=== PATIENT | female | born 1970 | race Caucasian/White ===

== ENCOUNTER 2016-06-18 13:06 | Emergency (ER) | payer MEDICAID ==
[~2016-06-18] VITALS: Ht 154.9 cm; Wt 86.4 kg
[~2016-06-18 13:06] MED LIST: ALBU0.08 NEB; ALBUAER3 INH; PRED50 PO; VENTAER INH
[2016-06-18 13:18] VITALS: BP 122/53; PULSE 75; RESP 16; TEMP 98.1; O2SAT 98
--- NOTE | 2016-06-18 14:12 | PD ---
HPI Chief Complaint: Cold / Flu Symptoms Time Seen by Provider: 14:07 Travel History International Travel<30 days: No Contact w/Intl Traveler<30days: No Traveled to known affect area: No History of Present Illness HPI Patient is a 46-year-old female presenting to our for evaluation of shortness of breath, chest congestion, cough. Patient states her symptoms started approximately one week ago with upper respiratory infection however the shortness of breath and wheezing has gotten worse over the last few days. Patient reports a history of asthma and has been using her albuterol inhaler as well as nebulizer treatments. Her last nebulizer treatment was last night, she has since run out of her medications. She denies any fever, chills, nausea, vomiting, chest pain, abdominal pain. PFSH Past Medical History Hx Anticoagulant Therapy: No Anemia: Yes Asthma: Yes Cardiovascular Problems: No Chemotherapy: No Cerebrovascular Accident: No Diabetes: No Diminished Hearing: No Respiratory: Yes (asthma) Immunizations Current: No ?: Not : 5 Para: 4 : 1 Tubal Ligation: Yes Past Surgical History Cholecystectomy: Yes Hysterectomy: Yes Social History Alcohol Use: Yes (SOCIALLY) Tobacco Use: Yes (former) Substance Use: No Allergies-Medications (Allergen,Severity, Reaction): Coded Allergies: No Known Allergies (Unverified , 06/18/16) Reported Meds & Prescriptions Reported Meds & Active Scripts Active Prednisone 50 Mg Tab 50 Mg PO DAILY 5 Days Budesonide Neb 0.5 Mg/2 Ml Neb 0.5 Mg NEB Q12HR NEB 10 Days Albuterol Neb (Albuterol Sulfate) 2.5 Mg/3 Ml Neb 2.5 Mg NEB Q4HR NEB PRN 30 Days Ventolin Hfa 18 GM Inh (Albuterol Sulfate) 90 Mcg/Act Aer 2 Puff INH Q4-6H PRN Review of Systems Except as stated in HPI: all other systems reviewed are Neg General / Constitutional: No: Fever, Chills HENT: No: Headaches Respiratory: Positive: Cough, Shortness of Breath, Wheezing, Pleuritic Pain Gastrointestinal: No: Nausea, Vomiting, Abdominal Pain Musculoskeletal: No: Myalgias Physical Exam Narrative GENERAL: Obese, well developed, female. Resting comfortably in no acute distress. SKIN: Warm and dry. HEAD: Normocephalic. EYES: No scleral icterus. No injection or drainage. NECK: Supple, trachea midline. No JVD or lymphadenopathy. CARDIOVASCULAR: Regular rate and rhythm without murmurs, gallops, or rubs. RESPIRATORY: Breath sounds equal bilaterally, diminished in bases, expiratory wheezing noted throughout. No increased work of breathing. GASTROINTESTINAL: Abdomen soft, non-tender, nondistended. Positive bowel sounds. No hepato-splenomegaly, or palpable masses. No guarding. MUSCULOSKELETAL: No cyanosis, or edema. BACK: Nontender without obvious deformity. No CVA tenderness. Data Data Last Documented VS Vital Signs Date Time Temp Pulse Resp B/P Pulse Ox O2 Delivery O2 Flow Rate FiO2 06/18/16 14:39 54 20 154/62 99 06/18/16 13:18 98.1 Orders Chest, Pa & Lat (06/18/16 14:05) Methylprednisolone So Succ Inj (Solumedr (06/18/16 14:15) Albuterol-Ipratropium Neb (Duoneb Neb) (06/18/16 14:15) MDM Medical Decision Making Medical Screen Exam Complete: Yes Emergency Medical Condition: Yes Interpretation(s) Vital Signs Date Time Temp Pulse Resp B/P Pulse Ox O2 Delivery O2 Flow Rate FiO2 06/18/16 13:18 98.1 75 16 122/53 98 Differential Diagnosis Asthma exacerbation versus bronchitis versus pneumonia versus other Narrative Course Patient's a 46-year-old female percent emergency for evaluation of shortness of breath, chest congestion, wheezing. Patient is a history of asthma and has been using her inhaler or nebulizer treatments. She ran out of her nebulizers last night. Patient is afebrile, she is well oxygenated on room air. She does have expiratory wheezing noted throughout. DuoNeb, Solu-Medrol, chest x-ray ordered and pending. Chest x-ray shows no acute disease. She reports improvement in her symptoms after nebulizers and Solu-Medrol. Patient will be provided with prescription refills for her albuterol inhaler as well as nebulizer treatments. Discussed prescriptions patient. She is encouraged to follow-up with her primary care next week as scheduled. She is encouraged to return to emergency department for any new or worsening symptoms. She verbalized understanding of these instructions. Diagnosis Primary Impression: Asthma exacerbation Additional Impression: Bronchitis Referrals: Primary Care Physician 1 week Patient Instructions: Asthma (ED), General Instructions Additional Instructions: Follow-up with your primary doctor Use medications as directed Return to emergency department for any new or worsening symptoms Med/Other Pt SpecificInfo: Prescription(s) given Scripts Azithromycin 250 Mg [id number] Mg PO DIRECTED #6 TAB Ref 0 Take 2 tabs (500 mg) on day 1 then 1 tab daily x 4 days. Prov:Tonia Feliz 06/18/16 Prednisone 50 Mg Tab50 Mg PO DAILY 5 Days Ref 0 Prov:Tonia Feliz 06/18/16 Budesonide Neb 0.5 Mg/2 Ml Neb0.5 Mg NEB Q12HR NEB 10 Days Ref 0 Prov:Tonia Feliz 06/18/16 Albuterol Neb 2.5 Mg/3 Ml Neb2.5 Mg NEB Q4HR NEB PRN (SHORTNESS OF BREATH) 30 Days Ref 0 Prov:Tonia Feliz 06/18/16 Albuterol 18 GM Inh (Ventolin Hfa 18 GM Inh)90 Mcg/Act Aer2 Puff INH Q4-6H PRN ( SHORTNESS OF BREATH) #1 INHALER Ref 0 Prov:Tonia Feliz 06/18/16 Disposition: 01 DISCHARGE HOME Condition: Stable Tonia Feliz Jun 18, 2016 14:11
[2016-06-18] MEDS ORDERED: methylPREDNISolone SOD SUCC 125 MG/2 ML VIAL IM ONE (14:15)
[2016-06-18] MEDS: RESP: ALBUTEROL 2.5 MG/IPRATROPIUM 0.5 MG NEB (SCH) INH ×2 (14:29→14:30)
--- NOTE | 2016-06-18 14:31 | RADHPO ---
EXAM DATE/TIME: 06/18/2016 14:15 [facility] COMPARISON: No previous studies available for comparison. INDICATIONS : Cough/short of breath/asthma/cold. MEDICAL HISTORY : Asthma. SURGICAL HISTORY : Hysterectomy. Cholecystectomy. ENCOUNTER: Initial ACUITY: 1 week PAIN SCORE: 0/10 LOCATION: chest FINDINGS: PA and lateral views of the chest demonstrate the lungs to be symmetrically aerated without evidence of mass, infiltrate or effusion. The cardiomediastinal contours are unremarkable. Osseous structure s are intact. CONCLUSION: No acute disease. There is no evidence of pneumonia. Romain Jaime MD on June 18, 2016 at 14:29 Board Certified Radiologist. This report was verified electronically.
[2016-06-18 14:39] VITALS: BP 154/62; PULSE 54; RESP 20; O2SAT 99
[2016-06-18] MEDS ORDERED: BUDE0.5S NEB (14:42)
[2016-06-18] MEDS ORDERED: PRED50 PO (14:42)
[2016-06-18] MEDS ORDERED: ALBU0.08 NEB (14:42)
[2016-06-18] MEDS ORDERED: VENTAER INH (14:42)
[2016-06-18] MEDS ORDERED: AZIT250T3 PO (15:13)
== END 2016-06-18 15:21 | disposition home or self-care (01) ==
LOC: PHEFT 13:06
DX: J45.901 Unspecified asthma with (acute) exacerbation (principal); Z87.891 Personal history of nicotine dependence
CPT/HCPCS: 71020; 94640; 94664; 96372; 99283; J2930

== ENCOUNTER 2016-10-10 21:50 | Emergency (ER) | payer MEDICAID ==
[~2016-10-10] VITALS: Ht 154.9 cm; Wt 81.2 kg
[~2016-10-10 21:50] MED LIST changes: -ALBUAER3 INH; +AZIT250T3 PO; +BUDE0.5S NEB
[2016-10-10 22:00] VITALS: BP 147/80; PULSE 71; RESP 18; TEMP 98.2; O2SAT 97
[2016-10-10] MEDS ORDERED: ARTIDRO RIGHT EYE (22:20)
--- NOTE | 2016-10-10 22:21 | PD ---
HPI Chief Complaint: Eye Problems/Injury Time Seen by Provider: 22:11 Travel History International Travel<30 days: No Contact w/Intl Traveler<30days: No Traveled to known affect area: No History of Present Illness HPI 46yo F with PMH of asthma presents to the ED with c/o right eye itching, redness today. When she woke up this morning, she noted crusting of her eyelashes and now has clear discharge in right eye. +Foreign body sensation in right eye. Denies any fever, visual changes, chest pain, sob, n/v, abdominal pain, focal weakness or numbness. PFSH Past Medical History Hx Anticoagulant Therapy: No Anemia: Yes Asthma: Yes Cardiovascular Problems: No Chemotherapy: No Cerebrovascular Accident: No Diabetes: No Diminished Hearing: No Respiratory: Yes Immunizations Current: No Tetanus Vaccination: < 5 Years Influenza Vaccination: No ?: Not Menopausal: Yes : 5 Para: 4 : 1 Tubal Ligation: Yes Past Surgical History Cholecystectomy: Yes Hysterectomy: Yes Social History Alcohol Use: Yes ("Maybe twice a year" ) Tobacco Use: Yes (/2 PPD) Substance Use: No Allergies-Medications (Allergen,Severity, Reaction): Coded Allergies: No Known Allergies (Unverified , 10/10/16) Reported Meds & Prescriptions Reported Meds & Active Scripts Active Artificial Tears Opth Drops (Propylene Glycol-Glycerin Opth Drops) 1-0.3% Drops 1-2 Drop RIGHT EYE BID PRN 5 Days Albuterol Neb (Albuterol Sulfate) 2.5 Mg/3 Ml Neb 2.5 Mg NEB Q4HR NEB PRN 30 Days Ventolin Hfa 18 GM Inh (Albuterol Sulfate) 90 Mcg/Act Aer 2 Puff INH Q4-6H PRN Review of Systems Except as stated in HPI: all other systems reviewed are Neg Physical Exam Narrative GENERAL: 46yo F not in distress. SKIN: Focused skin assessment warm/dry. HEAD: Atraumatic. Normocephalic. EYES: Right eye: Injected conjunctiva with clear eye discharge. Pupils reactive and equal to light. EOMI. No pain with eye movement. No foreign body seen on upper or lower eyelids. No fluorescein uptake on Wood's lamp exam. CARDIOVASCULAR: Regular rate and rhythm. No murmur appreciated. RESPIRATORY: No accessory muscle use. Clear to auscultation. Breath sounds equal bilaterally. GASTROINTESTINAL: Abdomen soft, non-tender, nondistended. Hepatic and splenic margins not palpable. MUSCULOSKELETAL: No obvious deformities. No clubbing. No cyanosis. No edema. NEUROLOGICAL: Awake and alert. No obvious cranial nerve deficits. Motor grossly within normal limits. Normal speech. PSYCHIATRIC: Appropriate mood and affect; insight and judgment normal. Data Data Last Documented VS Vital Signs Date Time Temp Pulse Resp B/P Pulse Ox O2 Delivery O2 Flow Rate FiO2 10/10/16 22:00 98.2 71 18 147/80 97 MDM Medical Decision Making Medical Screen Exam Complete: Yes Emergency Medical Condition: Yes Differential Diagnosis Viral conjunctivitis vs. corneal abrasion vs. foreign body in eye Narrative Course 46yo F with right eye conjunctivitis. Pt is well appearing and it just started today. Pt given acetaminophen for pain. No visual changes. Advised to use warm compresses and artificial tears as needed. Instructed to follow up with ophthalmology as outpatient. Diagnosis Primary Impression: Viral conjunctivitis of right eye Departure Forms: Tests/Procedures Additional Instructions: Please apply warm compresses to right eye. Please wash hands after touching your eye and avoid touching your left eye. Please follow up with cloth measurer in 1 week. Return to the ED if symptoms worsen. Med/Other Pt SpecificInfo: Prescription(s) given Scripts Propylene Glycol-Glycerin Opth Drops (Artificial Tears Opth Drops)1-0.3% Drops1- 2 Drop RIGHT EYE BID PRN (DRY EYE) 5 Days Ref 0 Prov:Nasreen Keenan DO 10/10/16 Disposition: 01 DISCHARGE HOME Condition: Stable Nasreen Keenan DO Oct 10, 2016 22:21
[2016-10-10] MEDS ORDERED: ACETAMINOPHEN 500 MG CPLT PO ONE (22:30)
== END 2016-10-10 22:35 | disposition home or self-care (01) ==
LOC: PHEFT 21:50
DX: B30.9 Viral conjunctivitis, unspecified (principal)
CPT/HCPCS: 99283

== ENCOUNTER 2016-11-06 06:39 | Emergency (ER) | payer MEDICAID ==
[~2016-11-06] VITALS: Ht 154.9 cm; Wt 81.7 kg
[~2016-11-06 06:39] MED LIST changes: +ARTIDRO RIGHT EYE; -AZIT250T3 PO; -BUDE0.5S NEB; -PRED50 PO
[2016-11-06 06:44] VITALS: BP 134/69; PULSE 52; RESP 16; TEMP 97.9; O2SAT 98
--- NOTE | 2016-11-06 07:22 | PD ---
HPI . Chief complaint shortness of breath T Chief Complaint: Respiratory Symptoms Time Seen by Provider: 06:59 Travel History International Travel<30 days: No Contact w/Intl Traveler<30days: No Traveled to known affect area: No History of Present Illness HPI This is a 47-year-old female patient with a past medical history of asthma was a long-time smoker that has been prescribed an albuterol nebulizer unit at home as well as an albuterol inhaler who presents with a complaint of shortness of breath for 2-3 days. Patient denies fever chills chest pain or productive cough. Patient states she ran out of her home nebulizer solution as well as albuterol inhaler medication. PFSH Past Medical History Hx Anticoagulant Therapy: No Anemia: Yes Asthma: Yes Cardiovascular Problems: No Chemotherapy: No Cerebrovascular Accident: No Diabetes: No Diminished Hearing: No Respiratory: Yes (ASTHMA) Immunizations Current: No ?: Not Menopausal: Yes : 5 Para: 4 : 1 Tubal Ligation: Yes Past Surgical History Cholecystectomy: Yes Hysterectomy: Yes Social History Alcohol Use: Yes ("Maybe twice a year" ) Tobacco Use: Yes (1/2 PPD) Substance Use: No Allergies-Medications (Allergen,Severity, Reaction): Coded Allergies: No Known Allergies (Unverified , 11/06/16) Reported Meds & Prescriptions Reported Meds & Active Scripts Active Prednisone 20 Mg Tab 20 Mg PO BID 5 Days Albuterol Neb (Albuterol Sulfate) 2.5 Mg/3 Ml Neb 2.5 Mg NEB QID NEB Ventolin Hfa 18 GM Inh (Albuterol Sulfate) 90 Mcg/Act Aer 2 Puff INH Q6H PRN Albuterol Neb (Albuterol Sulfate) 2.5 Mg/3 Ml Neb 2.5 Mg NEB Q4HR NEB PRN 30 Days Ventolin Hfa 18 GM Inh (Albuterol Sulfate) 90 Mcg/Act Aer 2 Puff INH Q4-6H PRN Review of Systems ROS Limitations: Other: (none) General / Constitutional: Positive: Chills Eyes: No: Diploplia, Blurred Vision, Photophobia, Drainage, Redness, Foreign Body Sensation, Pain, Tearing, Blind Spots, Visual changes, Blindness, Other HENT: No: Headaches, Vertigo, Lightheadedness, Sore Throat, Rhinitis, Rhinorrhea, Congestion, Nosebleed, Neck Stiffness, Neck Pain, Masses, Gingival Bleeding, Dental Difficulties, Ear Discharge, Earache, Other Cardiovascular: No: Chest Pain or Discomfort, Palpitations, Irregular Rhythm, Tachycardia, Diaphoresis, Syncope, Dyspnea on exertion, Varicosities, Edema, Cyanosis, Varicosities, Phlebitis, Claudication, Other Respiratory: Positive: Shortness of Breath, Wheezing, No: Cough, Sneezing, Orthopnea, Hemoptysis, Stridor, Night Sweats, Pleuritic Pain, Other Gastrointestinal: No: Nausea, Vomiting, Diarrhea, Abdominal Pain, Hematemesis, Hematochezia, Constipation, Changes in Bowel Habits, Indigestion, Dysphagia, Loss of Appetite, Other Genitourinary: No: Urgency, Frequency, Dysuria, Nocturia, Hematuria, Decreased Urinary Output, Oliguria, Hesitancy, Dribbling, Incontinence, Pelvic Pain, Flank Pain, Dyspareunia, Discharge, Dysmenorrhea, Menorrhagia, Metorrhagia, Vaginal Bleeding, Other Musculoskeletal: No: Myalgias, Arthralgias, Limited ROM, Weakness, Cramping, Edema, Pain, Atrophy, Other Skin: No Rash, No Itching, No Dryness, No Lumps, No Hives, No Change in Pigmentation, No Change in nails, No Alopecia, No Lesions, No Breast Lumps, No Breast Tenderness, No Breast Swelling, No Other Neurologic: No: Weakness, Dizziness, Syncope, Focal Abnormalities, Coordination Problem, Tremor, Ataxia, Headache, Change in Mentation, Slurred Speech, Paresthesia, Incontinence, Seizures, Sensory Disturbance, Other Psychiatric: No: Anxiety, Depression, Suicidal Ideations, Disorder of Thought, Mood Disorder, Substance Abuse, Homicidal Ideation, Other Endocrine: No: Heat Intolerance, Cold Intolerance, Polyuria, Polydipsia, Other Hematologic/Lymphatic: No: Easy Bruising, Lymph Node Enlargement, Other Physical Exam Exam Limitations: Other: (none) Narrative GENERAL: Middle-aged female in mild respiratory distress SKIN: Focused skin assessment warm/dry.no lesions no cyanosis no erythema HEAD: Atraumatic. Normocephalic. EYES: Pupils equal and round and reactive . No scleral icterus. No injection or drainage. ENT: No nasal bleeding or discharge. Mucous membranes pink and moist. NECK: Trachea midline. No JVD. CARDIOVASCULAR: S1-S2 appreciated. Regular rate and rhythm. No murmur appreciated. Pulses normal throughout. No evidence of chest wall trauma or deformity RESPIRATORY: Decreased air movement expiratory wheezes noted on forced expiration no rhonchi appreciated no obvious retractions noted GASTROINTESTINAL: Abdomen soft, non-tender, nondistended. Hepatic and splenic margins not palpable. Bowel sounds normal. No peritoneal signs. MUSCULOSKELETAL: No obvious deformities. No clubbing. No cyanosis. No edema. NEUROLOGICAL: Awake and alert and oriented 3.. No obvious cranial nerve deficits. Motor and sensory exam grossly within normal limits. Normal speech. No meningeal signs. PSYCHIATRIC: Appropriate mood and affect; insight and judgment normal. No suicidal or homicidal ideation.GENERAL: [-] SKIN: Focused skin assessment warm/dry.no lesions no cyanosis no erythema HEAD: Atraumatic. Normocephalic. EYES: Pupils equal and round and reactive . No scleral icterus. No injection or drainage. ENT: No nasal bleeding or discharge. Mucous membranes pink and moist. NECK: Trachea midline. No JVD. CARDIOVASCULAR: S1-S2 appreciated. Regular rate and rhythm. No murmur appreciated. Pulses normal throughout. RESPIRATORY: No accessory muscle use. Clear to auscultation. Breath sounds equal bilaterally. GASTROINTESTINAL: Abdomen soft, non-tender, nondistended. Hepatic and splenic margins not palpable. Bowel sounds normal. No peritoneal signs. MUSCULOSKELETAL: No obvious deformities. No clubbing. No cyanosis. No edema. NEUROLOGICAL: Awake and alert and oriented 3.. No obvious cranial nerve deficits. Motor and sensory exam grossly within normal limits. Normal speech. No meningeal signs. PSYCHIATRIC: Appropriate mood and affect; insight and judgment normal. No suicidal or homicidal ideation. SKIN: Focused skin assessment warm/dry.no lesions no cyanosis no erythema HEAD: Atraumatic. Normocephalic. EYES: Pupils equal and round and reactive . No scleral icterus. No injection or drainage. ENT: No nasal bleeding or discharge. Mucous membranes pink and moist. NECK: Trachea midline. No JVD. CARDIOVASCULAR: S1-S2 appreciated. Regular rate and rhythm. No murmur appreciated. Pulses normal throughout. RESPIRATORY: No accessory muscle use. Clear to auscultation. Breath sounds equal bilaterally. GASTROINTESTINAL: Abdomen soft, non-tender, nondistended. Hepatic and splenic margins not palpable. Bowel sounds normal. No peritoneal signs. MUSCULOSKELETAL: No obvious deformities. No clubbing. No cyanosis. No edema. NEUROLOGICAL: Awake and alert and oriented 3.. No obvious cranial nerve deficits. Motor and sensory exam grossly within normal limits. Normal speech. No meningeal signs. PSYCHIATRIC: Appropriate mood and affect; insight and judgment normal. No suicidal or homicidal ideation. Data Data Last Documented VS Vital Signs Date Time Temp Pulse Resp B/P Pulse Ox O2 Delivery O2 Flow Rate FiO2 11/06/16 07:16 98 Room Air 11/06/16 06:44 97.9 52 16 134/69 Orders Albuterol-Ipratropium Neb (Duoneb Neb) (11/06/16 07:30) Prednisone (Deltasone) (11/06/16 07:30) Prednisone (Deltasone) (11/06/16 07:45) [facility] Medical Decision Making Medical Screen Exam Complete: Yes Emergency Medical Condition: Yes Medical Record Reviewed: Yes Differential Diagnosis Differential diagnoses acute asthma exacerbation and acute bronchitis acute respiratory distress medication noncompliance Narrative Course This is a 46-year-old female patient who ran out of her bronchodilator medication presents in mild distress patient given a DuoNeb and oral prednisone 60 mg Physician Communication Physician Communication none Diagnosis Primary Impression: Acute ashtma Exacerbation Additional Impression: Medication Noncompliance Patient Instructions: Asthma (DC) Departure Forms: Work Release Enter return to work date: Nov 09, 2016 Additional Instructions: stay well hydrated finish prednisone use albuterol inhaler as needed for shortness of breath . use home albuterol nebulizer as directed return if symptoms persist or worsen stop smoking follow up with your primary care provider call in the am for an appointment bedrest as directed return to work in 3 days november 09 2016 Med/Other Pt SpecificInfo: Prescription(s) given Scripts Prednisone 20 Mg Tab20 Mg PO BID 5 Days Ref 0 Prov:Wilton Jamison MD 11/06/16 Albuterol Neb 2.5 Mg/3 Ml Neb2.5 Mg NEB QID NEB #60 NEBULE Ref 0 Prov:Wilton Jamison MD 11/06/16 Albuterol 18 GM Inh (Ventolin Hfa 18 GM Inh)90 Mcg/Act Aer2 Puff INH Q6H PRN ( SHORTNESS OF BREATH) #1 INHALER Ref 0 Prov:Wilton Jamison MD 6/28/17 Disposition: 01 DISCHARGE HOME Wilton Jamison MD Nov 06, 2016 07:22
[2016-11-06] MEDS ORDERED: RESP: ALBUTEROL 2.5 MG/IPRATROPIUM 0.5 MG NEB (SCH) NEB ONE (07:30)
[2016-11-06] MEDS ORDERED: predniSONE 50 MG TAB PO ONE (07:30)
[2016-11-06] MEDS ORDERED: ALBU0.08 NEB (07:31)
[2016-11-06] MEDS ORDERED: VENTAER INH (07:31)
[2016-11-06] MEDS ORDERED: PRED20 PO (07:31)
[2016-11-06] MEDS ORDERED: predniSONE 20 MG TAB PO ONE (07:45)
== END 2016-11-06 08:00 | disposition home or self-care (01) ==
LOC: PHED 06:39
DX: J45.909 Unspecified asthma, uncomplicated (principal); F17.210 Nicotine dependence, cigarettes, uncomplicated
CPT/HCPCS: 94664; 99284; J7512

== ENCOUNTER 2017-02-11 11:53 | Emergency (ER) | payer MEDICAID ==
[~2017-02-11] VITALS: Ht 154.9 cm; Wt 81.4 kg
[~2017-02-11 11:53] MED LIST changes: -ARTIDRO RIGHT EYE; +PRED20 PO
[2017-02-11 11:59] VITALS: BP 148/67; PULSE 78; RESP 16; TEMP 98.8; O2SAT 97
[2017-02-11] MEDS ORDERED: ALBUAER3 INH (12:29)
[2017-02-11] MEDS ORDERED: BENZ100 PO (12:29)
[2017-02-11] MEDS ORDERED: MEDR4PAK PO (12:29)
--- NOTE | 2017-02-11 12:29 | PD ---
HPI Chief Complaint: Cold / Flu Symptoms Time Seen by Provider: 12:13 Travel History International Travel<30 days: No Contact w/Intl Traveler<30days: No Traveled to known affect area: No History of Present Illness HPI 47 y/f c/o nonproductive cough for 3 weeks and diarrhea for 1 days that is resolving. Says she was given a 'z pack' and tried multiple [id number] medications but did not relieve her symptoms. At this point she is annoyed by the cough but has not worsened over the last 3 weeks. 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 Says she occasionally has subjective fevers however her temperature has never been elevated. She has asthma and normally takes pro-air for her symptoms. Says she ran out yesterday. She also smokes. Denies fevers, chills, SOB, chest pain , hemoptysis. She no longer has a menstrual period. She says she has chronic back pain secondary to a kidney issue but is following up with a specialist for that. PFSH Past Medical History Hx Anticoagulant Therapy: No Anemia: Yes Asthma: Yes Cardiovascular Problems: No Chemotherapy: No Cerebrovascular Accident: No Diabetes: No Diminished Hearing: No Respiratory: Yes (asthma) Immunizations Current: No ?: Not Menopausal: Yes : 5 Para: 4 : 1 Tubal Ligation: Yes Past Surgical History Cholecystectomy: Yes Hysterectomy: Yes Social History Alcohol Use: Yes ("Maybe twice a year" ) Tobacco Use: Yes (1/2 PPD) Substance Use: No Allergies-Medications (Allergen,Severity, Reaction): Coded Allergies: No Known Allergies (Unverified , 02/11/17) Reported Meds & Prescriptions Reported Meds & Active Scripts Active Tessalon Perles (Benzonatate) 100 Mg Cap 100 Mg PO TID PRN 5 Days Medrol Dosepak (Methylprednisolone) 4 Mg Dspk 4 Mg PO DIRECTED Per Pharmacist direction Proair Hfa 8.5 GM Inh (Albuterol Sulfate) 90 Mcg/Act Aer 2 Puff INH Q4-6H PRN 108 mcg/actuation Albuterol Neb (Albuterol Sulfate) 2.5 Mg/3 Ml Neb 2.5 Mg NEB Q4HR NEB PRN 30 Days Ventolin Hfa 18 GM Inh (Albuterol Sulfate) 90 Mcg/Act Aer 2 Puff INH Q4-6H PRN Review of Systems Except as stated in HPI: all other systems reviewed are Neg Physical Exam Narrative GENERAL: Well-nourished, well-developed patient. SKIN: Focused skin assessment warm/dry. HEAD: Normocephalic. EYES: No scleral icterus. No injection or drainage. ENT: Bilateral TMs pearly ty without air-fluid level nonbulging. No nasal discharge, throat mildly injected without exudate. No sinus tenderness NECK: Supple, trachea midline. No JVD or lymphadenopathy. CARDIOVASCULAR: Regular rate and rhythm without murmurs, gallops, or rubs. RESPIRATORY: Breath sounds equal bilaterally. No accessory muscle use. No wheezing, rales, ronchi. MUSCULOSKELETAL: No cyanosis, or edema. BACK: No CVA tenderness. Data Data Last Documented VS Vital Signs Date Time Temp Pulse Resp B/P (MAP) Pulse Ox O2 Delivery O2 Flow Rate FiO2 02/11/17 11:59 98.8 78 16 148/67 (94) 97 Orders Orders Albuterol-Ipratropium Neb (Duoneb Neb) (02/11/17 13:00) Methylprednisolone So Succ Inj (Solumedr (02/11/17 13:00) MDM Medical Decision Making Medical Screen Exam Complete: Yes Emergency Medical Condition: Yes Differential Diagnosis Viral upper respiratory infection versus pneumonia versus asthma exacerbation versus asthma induced cough Narrative Course 47-year-old female here for evaluation of a nonproductive cough for 3 weeks. She works as a bell staff but denies any significant exposure to sick contacts. Says she has tried multiple [id number] as an Z-Jesus without relief. Says she is normally gets steroids however has not had steroids since this cough began. Says she just ran out of her inhaler. I suspect a viral upper respiratory infection. Since she is a smoker and has asthma, we'll treat her with a DuoNeb and a Solu-Medrol injection in the ED. She says she feels much better. Lung sounds remained clear and without wheezing. Prescribed Tessalon Perles, Medrol Dosepak, refill of her pro-air. She is advised that if her symptoms worsen or persist or return to the emergency department or her primary care physician for treatment Strongly advised her to stop smoking. Diagnosis Primary Impression: Upper respiratory infection Qualified Codes: J06.9 - Acute upper respiratory infection, unspecified; B97.89 - Other viral agents as the cause of diseases classified elsewhere Referrals: Primary Care Physician Departure Forms: Work Release Enter return to work date: Feb 14, 2017 Additional Instructions: Increase water intake If your symptoms worsen or persist return to the emergency department or your primary care physician for further treatment and evaluation. Scripts Benzonatate (Tessalon Perles) 100 Mg Cap 100 MG PO TID Y for COUGH for 5 Days, #10 CAP 0 Refills Prov: Lolis Talley 02/11/17 Methylprednisolone Dosepak (Medrol Dosepak) 4 Mg Dspk 4 MG PO DIRECTED, #1 DSPK 0 Refills Per Pharmacist direction Prov: Lolis Talley 02/11/17 Albuterol 8.5 GM Inh (Proair Hfa 8.5 GM Inh) 90 Mcg/Act Aer 2 PUFF INH Q4-6H Y for SHORTNESS OF BREATH, #1 INHALER 0 Refills 108 mcg/actuation Prov: Lolis Talley 02/11/17 Disposition: 01 DISCHARGE HOME Condition: Stable Lolis Talley Feb 11, 2017 12:29
[2017-02-11] MEDS ORDERED: methylPREDNISolone SOD SUCC 125 MG/2 ML VIAL IM ONE (13:00)
[2017-02-11] MEDS ORDERED: RESP: ALBUTEROL 2.5 MG/IPRATROPIUM 0.5 MG NEB (SCH) NEB ONE (13:00)
== END 2017-02-11 13:36 | disposition home or self-care (01) ==
LOC: PHEFT 11:53
DX: J06.9 Acute upper respiratory infection, unspecified (principal); B97.89 Other viral agents as the cause of diseases classified elsewhere
CPT/HCPCS: 94664; 96372; 99284; J2930

== ENCOUNTER 2017-08-23 12:50 | Emergency (ER) | payer MEDICAID ==
[~2017-08-23] VITALS: Ht 154.9 cm; Wt 82.7 kg
[~2017-08-23 12:50] MED LIST changes: +ALBUAER3 INH; +BENZ100 PO; +MEDR4PAK PO; -PRED20 PO
[2017-08-23 12:53] VITALS: BP 143/63; PULSE 73; RESP 20; TEMP 98.3; O2SAT 99
--- NOTE | 2017-08-23 13:42 | PD ---
HPI Chief Complaint: Respiratory Distress Time Seen by Provider: 13:07 Travel History International Travel<30 days: No Contact w/Intl Traveler<30days: No Traveled to known affect area: No History of Present Illness HPI The patient was seen and examined in the presence of the nurse. This patient complains of shortness of breath. She has history of asthma and continues to smoke. She reported some shortness of breath and wheezing. No productive cough or fever or chest pain. Symptom severity is mild PFSH Past Medical History Hx Anticoagulant Therapy: No Anemia: Yes Asthma: Yes Cardiovascular Problems: No Chemotherapy: No Cerebrovascular Accident: No Diabetes: No Diminished Hearing: No Respiratory: Yes (asthma) Immunizations Current: No Tetanus Vaccination: Unknown Influenza Vaccination: No ?: Not Menopausal: Yes : 5 Para: 4 : 1 Tubal Ligation: Yes Past Surgical History Cholecystectomy: Yes Hysterectomy: Yes (partial) Social History Alcohol Use: Yes ("Maybe twice a year" ) Tobacco Use: Yes (1/2 PPD) Substance Use: No Allergies-Medications (Allergen,Severity, Reaction): Coded Allergies: No Known Allergies (Unverified Adverse Reaction, Unknown, 08/23/17) Reported Meds & Prescriptions Reported Meds & Active Scripts Active Albuterol Neb (Albuterol Sulfate) 2.5 Mg/3 Ml Neb 2.5 Mg NEB Q4HR NEB PRN 30 Days Ventolin Hfa 18 GM Inh (Albuterol Sulfate) 90 Mcg/Act Aer 2 Puff INH Q4-6H PRN Review of Systems General / Constitutional: No: Fever HENT: No: Headaches Cardiovascular: No: Chest Pain or Discomfort Respiratory: Positive: Shortness of Breath Physical Exam Narrative GENERAL: Well-nourished, well-developed patient. SKIN: Focused skin assessment warm/dry. HEAD: Normocephalic. EYES: No scleral icterus. No injection or drainage. NECK: Supple, trachea midline. No JVD or lymphadenopathy. CARDIOVASCULAR: Regular rate and rhythm without murmurs, gallops, or rubs. RESPIRATORY: Breath sounds equal bilaterally. No accessory muscle use. Faint expiratory wheeze GASTROINTESTINAL: Abdomen soft, non-tender, nondistended. MUSCULOSKELETAL: No cyanosis, or edema. BACK: Nontender without obvious deformity. No CVA tenderness. Data Data Last Documented VS Vital Signs Date Time Temp Pulse Resp B/P (MAP) Pulse Ox O2 Delivery O2 Flow Rate FiO2 08/23/17 13:13 98 Room Air 08/23/17 12:53 98.3 73 20 143/63 (89) Orders Orders Ed Discharge Order (08/23/17 13:36) Prednisone (Deltasone) (08/23/17 13:45) MDM Medical Decision Making Medical Screen Exam Complete: Yes Emergency Medical Condition: Yes Medical Record Reviewed: Yes Differential Diagnosis Asthma, URI, bronchitis Narrative Course I have reviewed the patient's electronic medical record. We discussed options. She will nebulizer at home. Discussed smoking cessation. Gave her dose of prednisone and prescription for a few days Diagnosis Primary Impression: Asthma exacerbation Qualified Codes: J45.21 - Mild intermittent asthma with (acute) exacerbation Additional Instructions: The patient was advised to follow up with their physician and return if they worsen. Stop smoking Med/Other Pt SpecificInfo: Prescription(s) given Disposition: 01 DISCHARGE HOME Condition: Stable Jarvis Paul MD Aug 23, 2017 13:42
[2017-08-23] MEDS ORDERED: predniSONE 20 MG TAB PO ONE (13:45)
[2017-08-23 13:46] VITALS: BP 132/65; PULSE 70; RESP 20; O2SAT 95
[2017-08-23] MEDS ORDERED: PRED20 PO (13:55)
== END 2017-08-23 14:37 | disposition home or self-care (01) ==
LOC: PHED 12:50
DX: J45.21 Mild intermittent asthma with (acute) exacerbation (principal); F17.210 Nicotine dependence, cigarettes, uncomplicated
CPT/HCPCS: 99283; J7512